=== PATIENT | male | born 1990 | race Caucasian/White ===

== ENCOUNTER 2016-11-27 12:38 | Day surgery (SDC) | payer BC ==
--- NOTE | 2016-11-27 13:09 | PCM.PREANE ---
Preanesthetic Assessment - Anesthesia/Transfusion/Family Hx Anesthesia History: Prior Anesthesia Reaction (nausea) Family History of Anesthesia Reaction: No Transfusion History: No Prior Transfusion(s) - Review of Systems General: No Symptoms Pulmonary: No Symptoms Cardiovascular: No Symptoms Gastrointestinal: Abdominal pain Neurological: No Symptoms Other: Reports: None - Physical Assessment NPO Status Date: 11/26/16 NPO Status Time: 00:00 Pulse: 67 O2 Sat by Pulse Oximetry: 96 Respiratory Rate: 16 Blood Pressure: 129/69 Temperature: 35.9 C Height: 1.8 m Weight: 99.79 kg ASA Class: 1 Mental Status: Alert & Oriented x3 Airway Class: Mallampati = 1 Dentition: Reports: Normal Dentition, Broken Tooth/Teeth Thyro-Mental Finger Breadths: 3 Mouth Opening Finger Breadths: 3 ROM/Head Extension: Full Lungs: Clear to auscultation, Normal respiratory effort Cardiovascular: Regular Rate, Regular Rhythm, No Murmurs - Lab Values: normal values on chart - Blood Blood Available: No Product(s) Available: None - Anesthesia Plan Pre-Op Medication Ordered: None - Acknowledgements Anesthesia Type Planned: General Anesthesia Pt an Appropriate Candidate for the Planned Anesthesia: Yes Alternatives and Risks of Anesthesia Discussed w Pt/Guardian: Yes Pt/Guardian Understands and Agrees with Anesthesia Plan: Yes PreAnesthesia Questionnaire - SUBSTANCE USE Smoking Status *Q: Never Smoker Tobacco Use Within Last Twelve Months: No Second Hand Smoke Exposure: No Days Per Week of Alcohol Use: 0 Number of Drinks Per Day: 0 Total Drinks Per Week: 0 Recreational Drug Use History: No
[2016-11-27] MEDS ORDERED: Scopolamine 1.5 MG Transdermal Patch TOP SCH (13:15)
[2016-11-27] MEDS ORDERED: Lidocaine 1%/Sod Bicarbonate in NS 8.4% 1 ML Syringe IV ONE (13:21)
[2016-11-27] MEDS ORDERED: fentaNYL 250 MCG/5 ML SDV ONE (13:30)
[2016-11-27] MEDS ORDERED: Lactated Ringers 1,000 ML IV SCH (13:30)
[2016-11-27] MEDS ORDERED: Rocuronium 50 MG/5 ML Vial ONE (13:30)
[2016-11-27] MEDS ORDERED: Midazolam 1 MG/ML 2 ML SDV ONE (13:30)
[2016-11-27] MEDS ORDERED: Propofol 200 MG/20 ML SDV ONE (13:30)
[2016-11-27] MEDS ORDERED: Ondansetron 4 MG/2 ML SDV ONE (13:30)
[2016-11-27] MEDS ORDERED: Bupivacaine 0.5%/EPINEPHrine 1:200,000 50 ML MDV ONE (13:31)
[2016-11-27] MEDS ORDERED: Lidocaine 1% with EPINEPHrine 1:100,000 20 ML MDV ONE (13:31)
[2016-11-27] MEDS ORDERED: Ertapenem 1 GM AdvVial ONE (14:44)
[2016-11-27] MEDS ORDERED: Ertapenem 1 GM in Sodium Chloride 0.9% 100 ML IV ONE (14:45)
[2016-11-27] MEDS ORDERED: diphenhydrAMINE 50 MG/ML SDV ONE (14:56)
[2016-11-27] MEDS ORDERED: Dexamethasone 4 MG/ML 5 ML MDV ONE (14:56)
[2016-11-27] MEDS ORDERED: Neostigmine Methylsulfate 1 MG/ML 5 ML Syringe ONE (15:16)
[2016-11-27] MEDS ORDERED: Labetalol 100 MG/20 ML MDV ONE (15:18)
[2016-11-27] MEDS ORDERED: Lactated Ringers 1,000 ML ONE (15:19)
[2016-11-27] MEDS ORDERED: fentaNYL 250 MCG/5 ML SDV IVPUSH PRN (15:27)
[2016-11-27] MEDS ORDERED: HYDROmorphone 0.5 MG/0.5 ML Syringe IVPUSH PRN (15:27)
--- NOTE | 2016-11-27 15:28 | PCM.CONS ---
H&P History of Present Illness - General Date of Service: 11/27/16 Source of Information: Patient, Provider History Limitations: Reports: No Limitations - History of Present Illness Initial Comments - Free Text/Narative: The patient is a 26-year-old man who presents with complaints of abdominal pain for the past 24 hours that is worsening in intensity. They were referred to me by Dr. Shannen Faustin from the [place]. The pain began yesterday morning in the RLQ and is primarily located in the right lower quadrant at this time. It does not radiate. They have never had pain like this before. They had some nausea, no vomiting, fever and chills. Deny hematochezia, melena, diarrhea or constipation. Last bowel movement was this AM and was normal. They deny any personal or family history of colon cancer or inflammatory bowel disease. No previous abdominal operations. White blood cell count was not elevated. CT scan of the Abdomen and Pelvis was performed demonstrating an appendicolith and mild inflammation of the appendix, possibly representing early acute appendicitis. They last ate at this AM. No prior colonoscopy. No family hx of inflammatory bowel disease or colon cancer. No family hx of bleeding/clotting disorders or problems with anesthesia. CT images personally reviewed, please see HPI. - Related Data Allergies/Adverse Reactions: Allergies Allergy/AdvReac Type Severity Reaction Status Date / Time nitrous oxide Allergy Nausea and Verified 11/27/16 13:16 Vomiting Past Medical History - Past Health History Medical/Surgical History: Denies Medical/Surgical History (with exception of right index finger surgery) Social & Family History - Family History Family Medical History: Noncontributory Other Family History: MO, FA, SIS are alive and healthy - Tobacco Use Smoking Status *Q: Never Smoker Second Hand Smoke Exposure: No - Alcohol Use Alcohol Use History: Yes Days Per Week of Alcohol Use: 0 Number of Drinks Per Day: 0 Total Drinks Per Week: 0 Alcohol Use Comment: Rare - Recreational Drug Use Recreational Drug Use: No - Living Situation & Occupation Living situation: Reports: with Significant Other Occupation: Employed H&P Review of Systems - Review of Systems: Review Of Systems: See Below General: Reports: No Symptoms HEENT: Reports: No Symptoms Pulmonary: Reports: No Symptoms Cardiovascular: Reports: No Symptoms Gastrointestinal: Reports: Abdominal Pain, Nausea. Denies: Constipation, Diarrhea, Hematochezia, Melena Genitourinary: Reports: No Symptoms Musculoskeletal: Reports: No Symptoms Skin: Reports: No Symptoms Psychiatric: Reports: No Symptoms Neurological: Reports: No Symptoms Hematologic/Lymphatic: Reports: No Symptoms Immunologic: Reports: No Symptoms Exam - Exam Exam: See Below - Vital Signs Vital Signs: Last Vital Signs Temp 96.7 F 11/27/16 13:11 Pulse 67 11/27/16 13:11 Resp 16 11/27/16 13:11 BP 129/69 11/27/16 13:11 Pulse Ox 96 11/27/16 13:11 Weight: 220 lb - Exam General: Alert, Oriented, Cooperative HEENT: Hearing Intact. No: Scleral Icterus Neck: Supple, Trachea Midline, 2 Lungs: Clear to Auscultation, Normal Respiratory Effort Cardiovascular: Regular Rate, Regular Rhythm Abdomen: Soft, Tenderness (RLQ ). No: Distention, Guarding, Rigidity, Rebound, Hernia, Mass (Male) Exam: Circumcised. No: Scrotal Swelling Rectal (Males) Exam: Deferred Extremities: No: Clubbing, Cyanosis, Edema Skin: Warm, Dry, Intact Neurological: Cranial Nerves Intact, Normal Speech. No: Focal Deficit Neuro Extensive - Mental Status: Alert, Oriented x3, Normal Mood/Affect, Normal Cognition Consult PN Assessment/Plan (1) Acute appendicitis SNOMED Code(s): 54900028 Code(s): K35.80 - UNSPECIFIED ACUTE APPENDICITIS Current Visit: Yes Problem List Initiated/Reviewed/Updated: Yes My Orders last 24 hours: My Active Orders 11/27/16 14:45 Ertapenem [INVanz] 1 gm Sodium Chloride 0.9% [Normal Saline] 100 ml IV ONETIME Plan: 26-year-old with acute appendicitis We discussed proceeding with laparoscopic, possible open, appendectomy. Risks of the procedure were discussed including pain, bleeding, infection, scarring, need for additional procedures, risks of anesthesia. The patient found these risks acceptable and agreed to proceed. Invanz 1 gm was given as outpatient therapy.
--- NOTE | 2016-11-27 15:29 | PCM.POSTAN ---
POST ANESTHESIA ASSESSMENT - MENTAL STATUS Mental Status: alert, oriented - VITAL SIGNS Pulse Rate: 98 SaO2: 98 Resp Rate: 14 Blood Pressure: 144/73 Temperature: 36.4 C - RESPIRATORY Respiratory Status: respiratory rate WNL, airway patent, O2 saturation stable, supplemental oxygen - CARDIOVASCULAR CV Status: pulse rate WNL, blood pressure stable - GASTROINTESTINAL GI Status: no symptoms - PAIN Pain Score: 0 - POST OP HYDRATION Hydration Status: adequate & stable - OBSERVATIONS Free Text/Narrative:: no anesthesia complications noted
[2016-11-27] MEDS ORDERED: fentaNYL 100 MCG/2 ML SDV ONE (15:51)
--- NOTE | 2016-11-27 15:59 | PCM.OPNOTE ---
- General Post-Op/Procedure Note Date of Surgery/Procedure: 11/27/16 Operative Procedure(s): Laparoscopic appendectomy Pre Op Diagnosis: Acute appendicitis with appendicolith Post-Op Diagnosis: Same Anesthesia Technique: General ET tube, Local Primary Surgeon: Jo Arias Anesthesia Provider: Flakito Cowart Pathology: Appendix Fluid Replacement, Intraop: 1,000 (mL crystalloid ) EBL in mLs: 2 Complications: None Condition: Good Free Text/Narrative:: INDICATION FOR PROCEDURE: The patient is a 26-year-old man who had been referred to me by Dr. Sahnnen Faustin from the [facility] for evaluation for acute appendicitis diagnosed on CAT scan of the abdomen and pelvis. I discussed with the patient performing a laparoscopic appendectomy and associated risks of the procedure. The patient found these risks acceptable and agreed to proceed. DESCRIPTION OF PROCEDURE: The patient was taken to the operating room and placed in the supine position. Sequential compressive devices were placed on the bilateral lower extremities. After induction of general endotracheal anesthesia, the abdomen was prepped and draped in the usual sterile fashion. The left arm had been tucked at the patient 's side and pressure points adequately padded. Treatment antibiotics in the form of Invanz had been administered as per protocol. A curvilinear supraumbilical incision was made using a scalpel. The abdomen was bluntly entered using a hemostat. An 0 Vicryl stay suture was placed. A Estevez cannula was introduced into the abdomen and the abdomen was insufflated to 15 mm of mercury. The abdomen was then surveyed. The liver, stomach, and visualized portions of the small and large intestine were unremarkable. There were no inguinal hernias. The tip of the appendix was slightly inflamed. Two additional 5 mm trocars were then placed under direct visualization after first injecting local anesthetic, one in the suprapubic region and one in the left lower quadrant. The appendix was then dissected at the base of the cecum. A mesenteric window was created using a [place]. The appendiceal base was then taken at the cecum using a white load Endo KIM stapler. The appendiceal mesentery was taken using the Harmonic scalpel. The appendix was placed into a Endo Catch bag. The abdomen was suctioned and irrigated. Hemostasis was confirmed. The 5 mm trocars were removed with no evidence of bleeding. The Estevez cannula and appendix within the EndoCatch bag were then removed. The patient's fascial incision was closed using an 0 Vicryl [id number] suture. Additional local anesthetic was injected teho-incisionally. The incisions were then closed using subcuticular 4-0 Monocryl suture. Dermabond was placed over the patient's skin incisions. The patient was then awakened from anesthesia, extubated, and transferred to the recovery room in stable condition having tolerated the procedure well. Sponge and instrument counts were reported as correct at the end of the case. POSTOPERATIVE PLAN: I discussed my intraoperative findings and post-operative care instructions with the patient's girlfriend and parents. The patient will be discharged home today. Prescriptions for Percocet 5/325mg and Zofran ODT were given in addition to Senna S. The patient will follow up with me in 2 weeks for a post-operative check. They are not lift over 20 pounds for the next 4 weeks. They are to call the office with any questions or concerns.
[2016-11-27] MEDS ORDERED: Acetaminophen/oxyCODONE 325-5 MG Tab PO ONE (16:48)
[2016-11-27 17:39] VITALS: BP 125/68
== END 2016-11-27 17:35 | disposition home or self-care (01) ==
LOC: JD.SDS 12:38
PROVIDERS: ATTEND Surgery
DX: K35.80 Unspecified acute appendicitis (principal); Z88.8 Allergy status to other drugs, medicaments and biological substances
CPT/HCPCS: 44970; A9270; J1100; J1200; J1335; J2250; J2405; J2710; J3010; J7030; J7120; 00840; J2704

== ENCOUNTER 2018-07-29 17:58 | Emergency (ER) | payer BC ==
[2018-07-29] MEDS ORDERED: Ondansetron 4 MG/2 ML SDV IVPUSH ONE (19:46)
[2018-07-29] MEDS ORDERED: Sodium Chloride 0.9% 1,000 ML IV SCH (20:00)
--- NOTE | 2018-07-29 20:20 | EDM.PDOC ---
ED HPI GENERAL MEDICAL PROBLEM - General Chief Complaint: Gastrointestinal Problem Stated Complaint: VOMITING X 2 HRS Time Seen by Provider: 07/29/18 19:15 Source of Information: Reports: Patient, Family History Limitations: Reports: No Limitations - History of Present Illness INITIAL COMMENTS - FREE TEXT/NARRATIVE: This is a 27-year-old male. Onset of diarrhea around noon and then onset of nausea and vomiting around 3 PM. He also noted some chills and some abdominal cramping and he had to leave work because of this illness. The patient states he gets rather dizzy when he has to stand up. He ate [employer] yesterday around noon for lunch and then had spaghetti for dinner last night but his also had the spaghetti and has had no symptoms. He did have a single donut this morning and other than that he has not eaten anything. Since the onset of the diarrhea and the nausea and vomiting he has not been able to drink any fluids. He comes to the ER for evaluation. He denies any blood in the vomitus or the diarrhea. He is noted by the nurse to have some positive orthostatic vital signs. Patient states he feels like he is chilling at times he has not noted any fever and he has had no fever in the ER. He denies being around anybody else who has had nausea vomiting or diarrhea. Abdomen Pain Score (Numeric/FACES): 8 - Related Data Allergies Allergy/AdvReac Type Severity Reaction Status Date / Time nitrous oxide AdvReac Nausea and Verified 11/28/16 08:05 Vomiting Home Meds: Home Meds Ondansetron [Zofran] 4 mg PO Q6H PRN #15 tab 07/29/18 [Rx] Past Medical History - Past Health History Medical/Surgical History: Denies Medical/Surgical History - Past Surgical History GI Surgical History: Reports: Appendectomy Social & Family History - Family History Family Medical History: Noncontributory - Tobacco Use Smoking Status *Q: Never Smoker - Caffeine Use Caffeine Use: Reports: Coffee, Energy Drinks, Soda, Tea - Recreational Drug Use Recreational Drug Use: No - Living Situation & Occupation Living situation: Reports: with Significant Other Occupation: Employed ED ROS GENERAL - Review of Systems Review Of Systems: See Below Constitutional: Reports: Chills, Malaise, Weakness. Denies: Fever HEENT: Reports: No Symptoms Respiratory: Reports: No Symptoms Cardiovascular: Reports: No Symptoms Endocrine: Reports: No Symptoms GI/Abdominal: Reports: Abdominal Pain, Diarrhea, Nausea, Vomiting. Denies: Bloody Stool, Hematemesis : Reports: No Symptoms Musculoskeletal: Reports: No Symptoms Skin: Reports: No Symptoms Neurological: Reports: No Symptoms Psychiatric: Reports: No Symptoms Hematologic/Lymphatic: Reports: No Symptoms ED EXAM, GI/ABD - Physical Exam Exam: See Below Exam Limited By: No Limitations General Appearance: Alert, WD/WN, No Apparent Distress Eyes: Bilateral: Normal Appearance Ears: Normal External Exam Nose: Normal Inspection Throat/Mouth: Normal Inspection, Normal Lips, Normal Voice, No Airway Compromise , Other (Mild tachycardia mucous membranes) Head: Normocephalic Neck: Supple Respiratory/Chest: No Respiratory Distress, Lungs Clear, Normal Breath Sounds Cardiovascular: Regular Rate, Rhythm, No Murmur, Tachycardia GI/Abdominal Exam: Soft, Other (He has generalized soreness all over his abdomen but there is no specific quadrant of pain, there is no rigidity there is no guarding or rebound noted, bowel sounds are quiet) Back Exam: Full Range of Motion Extremities: Normal Inspection, Normal Range of Motion, Other (His arms are noted to be slightly cool and to about the mid forearm area, as well as his feet and lower legs are slightly cool compared to the rest of the limb.) Neurological: Alert, Oriented Psychiatric: Normal Affect, Normal Mood Skin Exam: Warm, Dry Course - Vital Signs Last Recorded V/S: Last Vital Signs Temp 98.2 F 07/29/18 19:10 Pulse 100 07/29/18 20:08 Resp 20 07/29/18 19:10 BP 119/77 07/29/18 20:08 Pulse Ox 99 07/29/18 19:10 Orthostatic Blood Pressure [ 94/49 Standing] Orthostatic Blood Pressure [ 100/47 Supine] - Orders/Labs/Meds Orders: Active Orders 24 hr Category Date Time Status CULTURE STOOL + SHIGATOX [RM] Stat Lab 07/29/18 20:20 Received Sodium Chloride 0.9% [Normal Saline] 1,000 ml Med 07/29/18 20:00 Active IV ASDIRECTED Sodium Chloride 0.9% [Normal Saline] 1,000 ml Med 07/29/18 22:30 Active IV ONETIME Medication Orders Sodium Chloride (Normal Saline) 1,000 mls @ 1,000 mls/hr IV ASDIRECTED WILLIAM Last Admin: 07/29/18 20:32 Dose: 1,000 mls/hr Sodium Chloride (Normal Saline) 1,000 mls @ 999 mls/hr IV ONETIME ONE Stop: 07/29/18 23:30 Last Admin: 07/29/18 22:30 Dose: 999 mls/hr Labs: Laboratory Tests 07/29/18 07/29/18 Range/Units 20:15 20:15 WBC 13.89 H (4.23-9.07) K/mm3 RBC 5.99 (4.63-6.08) M/mm3 Hgb 17.7 H (13.7-17.5) gm/L Hct 51.2 H (40.1-51.0) % MCV 85.5 (79.0-92.2) fl MCH 29.5 (25.7-32.2) pg MCHC 34.6 (32.2-35.5) g/dl RDW Std Deviation 40.9 (35.1-43.9) fL Plt Count 303 (163-337) K/mm3 MPV 10.2 (9.4-12.3) fl Neut % (Auto) 88.9 H (34.0-67.9) % Lymph % (Auto) 2.7 L (21.8-53.1) % [place] % (Auto) 7.6 (5.3-12.2) % Eos % (Auto) 0.4 L (0.8-7.0) Baso % (Auto) 0.1 (0.1-1.2) % Neut # (Auto) 12.35 H (1.78-5.38) K/mm3 Lymph # (Auto) 0.38 L (1.32-3.57) K/mm3 [place] # (Auto) 1.06 H (0.30-0.82) K/mm3 Eos # (Auto) 0.05 (0.04-0.54) K/mm3 Baso # (Auto) 0.01 (0.01-0.08) K/mm3 Manual Slide Review Abnormal smear Sodium 137 (136-145) mEq/L Potassium 4.7 (3.5-5.1) mEq/L Chloride 99 (98-107) mEq/L Carbon Dioxide 22 (21-32) mEq/L Anion Gap 20.7 H (5-15) BUN 24 H (7-18) mg/dL Creatinine 1.4 H (0.7-1.3) mg/dL Est Cr Clr Drug Dosing 83.28 mL/min Estimated GFR (MDRD) > 60 (>60) mL/min BUN/Creatinine Ratio 17.1 (14-18) Glucose 123 H (74-106) mg/dL Calcium 10.6 H (8.5-10.1) mg/dL Total Bilirubin 1.0 (0.2-1.0) mg/dL AST 24 (15-37) U/L ALT 70 H (16-63) U/L Alkaline Phosphatase 94 (46-116) U/L Total Protein 9.4 H (6.4-8.2) g/dl Albumin 5.3 H (3.4-5.0) g/dl Globulin 4.1 gm/dL Albumin/Globulin Ratio 1.3 (1-2) Lipase 86 (73-393) U/L Meds: Medications Generic Name Dose Route Start Last Admin Trade Name Freq PRN Reason Stop Dose Admin Sodium Chloride 1,000 mls @ 1,000 mls/hr 07/29/18 20:00 07/29/18 20:32 Normal Saline IV 1,000 mls/hr ASDIRECTED WILLIAM Administration Sodium Chloride 1,000 mls @ 999 mls/hr 07/29/18 22:30 07/29/18 22:30 Normal Saline IV 07/29/18 23:30 999 mls/hr ONETIME ONE Administration Discontinued Medications Generic Name Dose Route Start Last Admin Trade Name Freq PRN Reason Stop Dose Admin Sodium Chloride 1,000 mls @ 999 mls/hr 07/29/18 21:07 07/29/18 21:08 Normal Saline IV 07/29/18 22:07 999 mls/hr ONETIME ONE Administration Sodium Chloride 1,000 mls @ 999 mls/hr 07/29/18 21:48 07/29/18 21:48 Normal Saline IV 07/29/18 22:48 999 mls/hr ONETIME ONE Administration Ondansetron HCl 4 mg 07/29/18 19:46 07/29/18 20:19 Zofran IVPUSH 07/29/18 19:47 4 mg ONETIME ONE Administration - Re-Assessments/Exams Free Text/Narrative Re-Assessment/Exam: 07/29/18 23:13 I spoke to the patient regarding his lab results. And that his stool had many white cells which could be stress related from all the diarrhea or he could have an infectious process. He's had no diarrhea since around 8:30 this evening. He's had no nausea and vomiting since he got into the ER bed. We gave him 4 L of fluids and even then he has slight orthostatic changes when standing up. He has been drinking Gatorade and keeping it down with no difficulty denies any nausea and he wants to go home. Departure - Departure Time of Disposition: 23:15 Disposition: Home, Self-Care 01 Condition: Good Clinical Impression: Dehydration, moderate, Orthostatic hypotension Nausea & vomiting Qualifiers: Vomiting type: unspecified Vomiting Intractability: non-intractable Qualified Code(s): R11.2 - Nausea with vomiting, unspecified Diarrhea Qualifiers: Diarrhea type: unspecified type Qualified Code(s): R19.7 - Diarrhea, unspecified - Discharge Information *PRESCRIPTION DRUG MONITORING PROGRAM REVIEWED*: Not Applicable *COPY OF PRESCRIPTION DRUG MONITORING REPORT IN PATIENT JONEL: Not Applicable Prescriptions: Ondansetron [Zofran] 4 mg PO Q6H PRN #15 tab PRN Reason: Nausea Instructions: Nausea and Vomiting, Adult, [id number], Dehydration, Adult, [id number] Referrals: PCP,None [Primary Care Provider] - Forms: ED Department Discharge Additional Instructions: Home sleep and rest for the next 48 hours, for Wednesday drink lots of fluids and do not eat anything except saltine crackers if desired, on Wednesday you may start having toast, bananas, yogurt and easy to digest foods, no meets, vegetables or cheese for at least 3-4 days since they are hard to digest and will make you vomit if your stomach is not ready for it, no strenuous activity for the next 3-4 days, if your symptoms worsen return to the ER - My Orders Last 24 Hours: My Active Orders 07/29/18 20:00 Sodium Chloride 0.9% [Normal Saline] 1,000 ml IV ASDIRECTED 07/29/18 20:20 CULTURE STOOL + SHIGATOX [RM] Stat 07/29/18 22:30 Sodium Chloride 0.9% [Normal Saline] 1,000 ml IV ONETIME - Assessment/Plan Last 24 Hours: My Active Orders 07/29/18 20:00 Sodium Chloride 0.9% [Normal Saline] 1,000 ml IV ASDIRECTED 07/29/18 20:20 CULTURE STOOL + SHIGATOX [RM] Stat 07/29/18 22:30 Sodium Chloride 0.9% [Normal Saline] 1,000 ml IV ONETIME
[2018-07-29 20:29] VITALS: BP 119/77
[2018-07-29] MEDS ORDERED: Sodium Chloride 0.9% 1,000 ML IV ONE ×3 (21:07→22:30)
== END 2018-07-29 23:25 | disposition home or self-care (01) ==
LOC: JD.ED 17:58
DX: E86.0 Dehydration (principal); R11.2 Nausea with vomiting, unspecified; R19.7 Diarrhea, unspecified; Z88.8 Allergy status to other drugs, medicaments and biological substances
CPT/HCPCS: 36415; 80053; 83690; 85025; 87046; 87425; 87427; 89055; 96361; 96374; 99284; J2405; J7040